=== PATIENT | male | born 1935 | race Caucasian/White ===

== ENCOUNTER 2017-01-15 18:43 | Emergency (ER) | payer MEDICARE ==
[2017-01-15 20:20] LABS: Hematocrit 36 % (42-52); Hemoglobin 11.3 g/dl (14.0-18.0); Mean Corpuscular HGB Conc 31 g/dl (31-36); Mean Corpuscular Hemoglobin 23 pg (27-31); Mean Corpuscular Volume 74 fL (80-94); Mean Platelet Volume 9 um3 (7.4-10.4); Red Blood Count 4.82 10^6/ul (4.0-5.4); Red Cell Distribution Width 19 % (10.5-15); White Blood Count 6.1 10^3/ul (3.5-10.8)
[2017-01-15 20:21] LABS: Add Diff/Slide Review? Slide Review Added; Comments Flag Yes
[2017-01-15 20:32] LABS: Albumin 3.8 g/dL (3.2-5.2); BUN/Creatinine Ratio 14.9 (8-20); C Reactive Protein 6.77 mg/L (< 5.00); Calcium 8.9 mg/dL (8.6-10.3); EGFR African American 91.6 (>60); EGFR Non-African American 71.3 (>60); Globulin 3.5 g/dL (2-4); Potassium 3.9 mmol/L (3.5-5.0); Total Bilirubin 0.8 mg/dL (0.2-1.0); Total Protein 7.3 g/dL (6.4-8.9)
--- NOTE | 2017-01-15 20:56 | RAD ---
Indication: Chest pain. Comparison is made with previous exam dated July 16, 2014. 2 views of the chest demonstrates bibasilar atelectasis. No mediastinal shift is noted. Heart is mildly enlarged. IMPRESSION: Bibasilar atelectasis. No pneumonia is identified.
--- NOTE | 2017-01-15 21:05 | RAD ---
Indication: Right flank pain. CT of the abdomen and pelvis was performed without oral or IV contrast administration. Coronal and sagittal reconstructed images were obtained. Lung bases demonstrate no pleural fluid, nodules or masses. Heart is of normal size without evidence of pericardial effusion. Liver is normal in size. No focal lesions or intrahepatic duct dilatation is noted. Patient status post cholecystectomy. The common duct is not dilated. The pancreas demonstrates no mass or pancreatic duct dilatation. The spleen is normal in size. No adrenal masses are noted. The kidneys demonstrate no hydronephrosis in either kidney. No hydroureter is noted. CT of the pelvis demonstrates no retroperitoneal or pelvic lymphadenopathy. Colon is filled with stool. Urinary bladder is unremarkable. Postoperative changes with surgical clips are noted in the rectosigmoid junction. IMPRESSION: NO EVIDENCE OF OBSTRUCTIVE UROPATHY IS NOTED. NO OTHER MASSES OR FLUID COLLECTIONS ARE IDENTIFIED.
--- NOTE | 2017-01-15 21:07 | RAD ---
Indication: Back pain. CT of the lumbar spine was obtained in the axial plane. Sagittal and coronal reconstructed images were obtained. The vertebral bodies appear normal in height. No compression fracture is noted. At L5-S1 vacuum disc phenomenon with broad-based protrusion flattens the thecal sac. Central protrusion is noted indenting the thecal sac. Moderate facet hypertrophy is noted. At L4-L5 spondylitic ridge flattens the thecal sac. Broad-based protrusion is noted. No central or foraminal stenosis is noted. At L3-L4 broad-based protrusion flattens the thecal sac. Right posterior lateral disc protrusion appears to narrow the right foramen and may impinge upon the right exiting nerve root. At L2-L3 broad-based protrusion flattens the thecal sac. No central foraminal stenosis is noted. L1-L2 vacuum disc phenomenon with broad-based protrusion flattens the thecal sac. Moderate degree of facet arthropathy is noted. IMPRESSION: Vacuum disc phenomenon with moderately severe degenerative disc disease at L1-L2, L3-L4, L4-L5 and L5-S1. Dorsal and ventral osteophyte formation is noted. At L3-L4 broad-based protrusion asymmetric towards the right narrows the right foramen. No fracture is noted.
[2017-01-15 21:57] LABS: Urine Bacteria Absent (Absent); Urine Bilirubin Negative (Negative); Urine Glucose Negative (Negative); Urine Nitrite Negative (Negative)
--- NOTE | 2017-01-15 22:48 | ED ---
Lindsey Spear Erika, scribed for Edgar Zayas MD on 01/15/17 at 2115 . Abdominal Pain/Male - HPI Summary HPI Summary: Patient is a 81-year-old male presenting to the ED with a CC of right lateral abdominal/flank pain starting this morning when he woke up. Patient reports pain has been constant since then, is rated a 2/10, and is aggravated by movement. Pain is not aggravated by breathing or palpation. Associated symptoms include nausea. He denies difficulty urinating. PSHx cholecystectomy, colon CA. - History of Current Complaint Chief Complaint: EDAbdPain Stated Complaint: ABD PAIN Time Seen by Provider: 01/15/17 19:50 Hx Obtained From: Patient, Family/Nurse Quality - Onset/Duration: Lasting Hours, Still Present Timing: Constant Severity Currently: Moderate Pain Intensity: 2 Pain Scale Used: 0-10 Numeric Location: Other - right lateral Aggravating Factor(s): Movement Alleviating Factor(s): Nothing Associated Signs And Symptoms: Positive: Nausea. Negative: Urinary Symptoms - Allergies/Home Medications Allergies/Adverse Reactions: Allergies Allergy/AdvReac Type Severity Reaction Status Date / Time No Known Allergies Allergy Verified 01/15/17 18:54 PMH/Surg Hx/FS Hx/Imm Hx Endocrine/Hematology History: Denies: Hx Diabetes Cardiovascular History: Reports: Hx Angina Denies: Hx Coronary Artery Disease, Hx Hypercholesterolemia, Hx Hypertension , Hx Myocardial Infarction, Hx Pacemaker/ICD, Hx Valvular Heart Disease, Other Cardiovascular Problems/Disorders Respiratory History: Reports: Hx Chronic Obstructive Pulmonary Disease (COPD) Denies: Hx Asthma GI History: Reports: Hx Gastroesophageal Reflux Disease Denies: Other GI Disorders History: Denies: Hx Dialysis, Hx Renal Disease Musculoskeletal History: Reports: Hx Arthritis - LEFT KNEE, RIGHT REPLACED Sensory History: Reports: Hx Contacts or Glasses Denies: Hx Hearing Aid Opthamlomology History: Reports: Hx Contacts or Glasses Neurological History: Denies: Other Neuro Impairments/Disorders Psychiatric History: Denies: Hx Panic Disorder - Cancer History Cancer Type, Location and Year: COLON CA Hx Chemotherapy: No Hx Radiation Therapy: No - Surgical History Surgery Procedure, Year, and Place: colon resection r/t CA,. RIGHT TOTAL KNEE. GALLBLADDER 01/06/14 Hx Anesthesia Reactions: No Infectious Disease History: No Infectious Disease History: Denies: Hx Shingles, Hx Tuberculosis, Traveled Outside the [place] in Last 30 Days - Family History Known Family History: Positive: Cardiac Disease - Social History Alcohol Use: Occasionally Alcohol Amount: 2-3 beers/wk Substance Use Type: Reports: None Hx Tobacco Use: Yes Amount Used/How Often: PIPE Have You Smoked in the Last Year: No Review of Systems Positive: Abdominal Pain - right lateral, Nausea Negative: dysuria All Other Systems Reviewed And Are Negative: Yes Physical Exam Triage Information Reviewed: Yes Vital Signs On Initial Exam: Initial Vitals Temp Pulse Resp BP Pulse Ox 99.7 F 91 16 156/93 94 01/15/17 18:55 01/15/17 18:55 01/15/17 18:55 01/15/17 18:55 01/15/17 18:55 Vital Signs Reviewed: Yes Appearance: Positive: Well-Appearing, No Pain Distress, Obese Skin: Positive: Warm, Skin Color Reflects Adequate Perfusion, Dry Head/Face: Positive: Normal Head/Face Inspection Eyes: Positive: Normal ENT: Positive: Normal ENT inspection Neck: Positive: Supple, Nontender Respiratory/Lung Sounds: Positive: Clear to Auscultation, Breath Sounds Present Cardiovascular: Positive: RRR Abdomen Description: Positive: Nontender, Soft Bowel Sounds: Positive: Present Musculoskeletal: Positive: Other - Obviously tender to the right iliac crest with movement, non-tender to palpation Neurological: Positive: Normal Psychiatric: Positive: Affect/Mood Appropriate Diagnostics - Vital Signs Vital Signs Temp Pulse Resp BP Pulse Ox 01/15/17 18:55 99.7 F 91 16 156/93 94 - Laboratory Lab Results: Lab Results 01/15/17 01/15/17 01/15/17 Range/Units 19:53 19:53 21:44 WBC 6.1 (3.5-10.8) 10^3/ul RBC 4.82 (4.0-5.4) 10^6/ul Hgb 11.3 L (14.0-18.0) g/dl Hct 36 L (42-52) % MCV 74 L (80-94) fL MCH 23 L (27-31) pg MCHC 31 (31-36) g/dl RDW 19 H (10.5-15) % Plt Count 195 (150-450) 10^3/ul MPV 9 (7.4-10.4) um3 Neut % (Auto) 68.9 (38-83) % Lymph % (Auto) 17.7 L (25-47) % [place] % (Auto) 12.1 H (1-9) % Eos % (Auto) 0.8 (0-6) % Baso % (Auto) 0.5 (0-2) % Absolute Neuts (auto) 4.2 (1.5-7.7) 10^3/ul Absolute Lymphs (auto) 1.1 (1.0-4.8) 10^3/ul Absolute Monos (auto) 0.7 (0-0.8) 10^3/ul Absolute Eos (auto) 0 (0-0.6) 10^3/ul Absolute Basos (auto) 0 (0-0.2) 10^3/ul Absolute Nucleated RBC 0 10^3/ul Nucleated RBC % 0 Sodium 137 (133-145) mmol/L Potassium 3.9 (3.5-5.0) mmol/L Chloride 103 (101-111) mmol/L Carbon Dioxide 27 (22-32) mmol/L Anion Gap 7 (2-11) mmol/L BUN 15 (6-24) mg/dL Creatinine 1.01 (0.67-1.17) mg/dL Est GFR ( Amer) 91.6 (>60) Est GFR (Non-Af Amer) 71.3 (>60) BUN/Creatinine Ratio 14.9 (8-20) Glucose 99 (70-100) mg/dL Calcium 8.9 (8.6-10.3) mg/dL Total Bilirubin 0.80 (0.2-1.0) mg/dL AST 19 (13-39) U/L ALT 16 (7-52) U/L Alkaline Phosphatase 68 (34-104) U/L Troponin I 0.00 (<0.04) ng/mL C-Reactive Protein 6.77 H (< 5.00) mg/L Total Protein 7.3 (6.4-8.9) g/dL Albumin 3.8 (3.2-5.2) g/dL Globulin 3.5 (2-4) g/dL Albumin/Globulin Ratio 1.1 (1-3) Urine Color Yellow Urine Appearance Clear Urine pH 6.0 (5-9) Ur Specific [place] 1.017 (1.010-1.030) Urine Protein Negative (Negative) Urine Ketones Negative (Negative) Urine Blood 3+ H (Negative) Urine Nitrate Negative (Negative) Urine Bilirubin Negative (Negative) Urine Urobilinogen Negative (Negative) Ur Leukocyte Esterase Trace H (Negative) Urine WBC (Auto) 1+(6-10/hpf) H (Absent) Urine RBC (Auto) 3+(>10/hpf) H (Absent) Ur Squamous Epith Cells Present H (Absent) Urine Bacteria Absent (Absent) Urine Glucose Negative (Negative) Result Diagrams: 01/15/17 19:53 01/15/17 19:53 Lab Statement: Any lab studies that have been ordered have been reviewed, and results considered in the medical decision making process. - Radiology CXR Radiology Interpretation Completed By: Radiologist - IMPRESSION: Bibasilar atelectasis. No pneumonia is identified. - CT CT A/P W/O CT Interpretation Completed By: Radiologist - IMPRESSION: NO EVIDENCE OF OBSTRUCTIVE UROPATHY IS NOTED. NO OTHER MASSES OR FLUID COLLECTIONS ARE IDENTIFIED. L Spine CT CT Interpretation Completed By: Radiologist - IMPRESSION: Vacuum disc phenomenon with moderately severe degenerative disc disease at L1-L2, L3-L4, L4- L5 and L5-S1. Dorsal and ventral osteophyte formation is noted. At L3-L4 broad- based protrusion asymmetric towards the right narrows the right foramen. No fracture is noted. Re-Evaluation - Re-Evaluation First Eval Re-Evaluation Time: 22:03 Comment: Discussed results with patient Abdominal Pain Fem Course/Dx - Course Course Of Treatment: Mr. Perez seems to have a musculoskeletal pain. It hurts him to move but I can't reproduce it with palpation. His W/U is negative aside from an equivocal urine and as it does not fit the clinical picture, I will wait for C&S. - Diagnoses Provider Diagnoses: Low back pain Discharge - Discharge Plan Condition: Stable Disposition: HOME Prescriptions: traMADol TAB* [Ultram*] 25 mg PO Q6HR PRN #20 tab MDD 4 PRN Reason: Pain Patient Education Materials: Low Back Strain (ED) Referrals: Sharon Black MD [Primary Care Provider] - Additional Instructions: Please follow up with your PCP The documentation as recorded by the Lindsey craig Erika accurately reflects the service I personally performed and the decisions made by me, Edgar Zayas MD.
[2017-01-15 22:59] VITALS: BP 174/84
[2017-01-15] MEDS ORDERED: HYDROcodone/ACETAMIN 5-325 MG* 1 TAB PO ONE (23:00)
--- NOTE | 2017-01-17 09:24 | PN ---
Progress Note - Progress Note Note: Patient urine preliminary culture grew citrobacter koseri 10-25,000. Was not discharged with any medication. Will wait for final urine culture results. No change needed at this time.
== END 2017-01-15 23:00 | disposition home or self-care (01) ==
LOC: ED 18:43
DX: S39.012A Strain of muscle, fascia and tendon of lower back, initial encounter (principal); R10.84 Generalized abdominal pain; X58.XXXA Exposure to other specified factors, initial encounter; Y93.9 Activity, unspecified; Y92.9 Unspecified place or not applicable; R11.0 Nausea
CPT/HCPCS: 36415; 71020; 72131; 74176; 80053; 81003; 81015; 84484; 85025; 86140; 87077; 87086; 87186; 99283

== ENCOUNTER 2019-01-12 02:33 | Emergency (ER) | payer MEDICARE ==
[2019-01-12] MEDS ORDERED: NS 0.9% 1000 ML** 1,000 ML IV ONE (03:04)
[2019-01-12] MEDS ORDERED: Aspirin 81 mg CHEW TAB* 81 MG TAB.CHEW PO ONE (03:05)
[2019-01-12] MEDS ORDERED: Metoprolol Tartrate IV* 1 MG/ML 5 ML VIAL IV ONE (03:05)
--- NOTE | 2019-01-12 03:08 | ED ---
HPI Chest Pain - HPI Summary HPI Summary: Pt is an 83 y/o male brought in by EMS who presents to the ED c/o CP. As per son , he began to have sub-sternal CP around 19:00 last night after eating. As per EMS, the CP has been worsening. Pain is constant and is rated a 4/10 in severity. Pt denies any SOB, abdominal pain, back pain, BUE pain, neck pain, nausea, or dizziness. He is a former smoker. PMHx angina, GERD. - History of Current Complaint Chief Complaint: EDChestPainROMI Time Seen by Provider: 01/12/19 03:02 Hx Obtained From: Patient, EMS Onset/Duration: Started Hours Ago - 19:00 last night, Still Present Timing: Constant Current Severity: Moderate Pain Intensity: 4 Pain Scale Used: 0-10 Numeric Chest Pain Location: Mid Sternal Character: Sharp/Stabbing Aggravating Factor(s): Other: - Food Associated Signs and Symptoms: Positive: Chest Pain. Negative: Shortness of Breath, Nausea, Back Pain - Allergy/Home Medications Allergies/Adverse Reactions: Allergies Allergy/AdvReac Type Severity Reaction Status Date / Time No Known Allergies Allergy Verified 01/15/17 18:54 Home Medications: Home Medications Acetaminophen [Acetaminophen Extra Strength] 500 mg PO Q4H PRN 01/12/19 [ History Confirmed 01/12/19] Aspirin 325 mg PO DAILY 01/12/19 [History Confirmed 01/12/19] Atorvastatin* [Lipitor*] 40 mg PO DAILY 01/12/19 [History Confirmed 01/12/19] Clopidogrel TAB* [Plavix TAB*] 1 tab PO DAILY 01/12/19 [History Confirmed ] Oxybutynin Chloride [Oxybutynin Chloride ER] 2 tab PO DAILY 01/12/19 [History Confirmed 01/12/19] PMH/Surg Hx/FS Hx/Imm Hx Endocrine/Hematology History: Denies: Hx Diabetes Cardiovascular History: Reports: Hx Angina Denies: Hx Coronary Artery Disease, Hx Hypercholesterolemia, Hx Hypertension , Hx Myocardial Infarction, Hx Pacemaker/ICD, Hx Valvular Heart Disease, Other Cardiovascular Problems/Disorders Respiratory History: Reports: Hx Chronic Obstructive Pulmonary Disease (COPD) Denies: Hx Asthma GI History: Reports: Hx Gastroesophageal Reflux Disease Denies: Other GI Disorders History: Reports: Hx Chronic Renal Failure Denies: Hx Dialysis, Hx Renal Disease Musculoskeletal History: Reports: Hx Arthritis - LEFT KNEE, RIGHT REPLACED Sensory History: Reports: Hx Contacts or Glasses Denies: Hx Hearing Aid Opthamlomology History: Reports: Hx Contacts or Glasses Neurological History: Reports: Hx CVA Denies: Other Neuro Impairments/Disorders Psychiatric History: Denies: Hx Panic Disorder - Cancer History Cancer Type, Location and Year: COLON CA Hx Chemotherapy: No Hx Radiation Therapy: No - Surgical History Surgery Procedure, Year, and Place: colon resection r/t CA,. RIGHT TOTAL KNEE. GALLBLADDER 01/06/14 Hx Anesthesia Reactions: No - Immunization History Date of Tetanus Vaccine: unk Date of Influenza Vaccine: none Infectious Disease History: No Infectious Disease History: Denies: Hx Shingles, Hx Tuberculosis, Traveled Outside the [place] in Last 30 Days - Family History Known Family History: Positive: Cardiac Disease - Social History Alcohol Use: Rare Alcohol Amount: 1 per month Hx Substance Use: No Substance Use Type: Reports: None Hx Tobacco Use: Yes Smoking Status (MU): Former Smoker Amount Used/How Often: PIPE Have You Smoked in the Last Year: No Review of Systems Positive: Chest Pain Negative: Shortness Of Breath Negative: Abdominal Pain, Nausea Negative: Myalgia - back, neck, BUE Neurological: Other - NEGATIVE: dizziness All Other Systems Reviewed And Are Negative: Yes Physical Exam - Summary Physical Exam Summary: Appearance: well appearing, no pain distress Skin: warm, dry, reflects adequate perfusion Head/face: normal Eyes: EOMI, GISELLA ENT: mucous membranes moist Neck: supple, non-tender, no JVD Respiratory: CTA, breath sounds present Cardiovascular: tachycardic rate but regular rhythm, pulses symmetrical, systolic murmur, minor BLE edema Abdomen: non-tender, soft Bowel Sounds: present Musculoskeletal: normal, strength/ROM intact Neuro: A&Ox3, essential tremor, hard of hearing Triage Information Reviewed: Yes Vital Signs On Initial Exam: Initial Vitals Temp Pulse Resp BP Pulse Ox 97.4 F 115 14 110/68 91 01/12/19 02:39 01/12/19 02:39 01/12/19 02:39 01/12/19 02:39 01/12/19 02:39 Vital Signs Reviewed: Yes Diagnostics - Vital Signs Vital Signs Temp Pulse Resp BP Pulse Ox 01/12/19 02:39 97.4 F 115 14 110/68 91 - Laboratory Result Diagrams: 01/12/19 03:20 01/12/19 03:21 Lab Statement: Any lab studies that have been ordered have been reviewed, and results considered in the medical decision making process. - Radiology CXR Radiology Interpretation Completed By: ED Physician Summary of Radiographic Findings: Tortuous airway, no acute findings. Unchanged from previous. Pending official radiology report. - EKG 3:16 Cardiac Rate: Tachycardia - 111 bpm EKG Rhythm: Sinus Tachycardia ST Segment: Non-Specific Summary of EKG Findings: Nl axis Re-Evaluation - Re-Evaluation First Eval Re-Evaluation Time: 04:00 Change: Unchanged Comment: Pt feels the same. He states this is similar to his normal GERD. Second Eval Re-Evaluation Time: 04:45 Change: Unchanged Comment: Pt feels the same. Discussed plan for discharge vs. admission. Chest Pain Course/Dx - Course Course Of Treatment: Patient presents with mild substernal chest discomfort that he relates his exacerbation of his chronic GERD. He is very comfortable and slept throughout his course. He had some benefit with treatment but had some residual. He was offered admission and declined and instead would like to go home and follow up closely with his primary care physician. He was treated for his heart rate in the 90s and low 100s and his hypertension. It is suggested that he follow-up first thing in the morning for blood pressure recheck and reevaluation of his symptoms. - Chest Pain Differential Diagnosis/HQI/PQRI: Acute MA, ACS, Angina, CHF, GI Disease, Lower Respiratory Infection, Pulmonary Embolism - Diagnoses Provider Diagnoses: Atypical chest pain, Chronic hypertension, Chronic GERD Discharge - Sign-Out/Discharge Documenting (check all that apply): Patient Departure - Discharge Patient Received Moderate/Deep Sedation with Procedure: No - Discharge Plan Condition: Improved Disposition: HOME Prescriptions: Famotidine TAB* [Pepcid 20 MG TAB*] 40 mg PO BID #30 tab Sucralfate TAB* [Carafate*] 1 gm PO QID #40 tab Patient Education Materials: Chest Pain (ED), Gastroesophageal Reflux Disease ( ED) Referrals: Hadley Jeffers DO [Primary Care Provider] - Additional Instructions: Call your doctor first thing this morning to schedule prompt follow-up. Return with difficulty breathing, alteration in your pain, worse, new symptoms or other concerns as discussed. Have your doctor recheck your blood pressure in the next few days. - Billing Disposition and Condition Condition: IMPROVED Disposition: Home - Attestation Statements Document Initiated by Therese: Yes Documenting Scribe: Erika Dennis Provider For Whom Therese is Documenting (Include Credential): Evaristo Martinez MD Scribe Attestation: Erika Spear, scribed for Evaristo Martinez MD on 01/12/19 at 0628. Scribe Documentation Reviewed: Yes Provider Attestation: The documentation as recorded by the Erika craig accurately reflects the service I personally performed and the decisions made by , Evaristo Martinez MD Status of Scribe Document: Viewed
[2019-01-12] MEDS ORDERED: Famotidine TAB* 20 MG PO ONE (03:12)
[2019-01-12] MEDS ORDERED: Al Hydrox/Mg Hydrox/Simet LIQ* 30 ML UDC PO ONE (03:12)
[2019-01-12] MEDS ORDERED: Sucralfate TAB* 1 GM PO ONE (03:12)
[2019-01-12 03:28] LABS: ABS Monocytes 0.9 10^3/ul (0-0.8); ABS Neutrophils 8.2 10^3/ul (1.5-7.7); Eosinophil % 0.3 %; Hematocrit 49 % (42-52); Hemoglobin 16.2 g/dL (14.0-18.0); Lymphocyte % 9.5 %; Mean Corpuscular HGB Conc 33 g/dL (31-36); Mean Corpuscular Hemoglobin 30 pg (27-31); Mean Corpuscular Volume 90 fL (80-94); Mean Platelet Volume 9.9 fL (7.4-10.4); Nucleated Red Blood Cells % 0.1; Platelet Count 185 10^3/uL (150-450); Red Blood Count 5.44 10^6 /uL (4.18-5.48); Red Cell Distribution Width 15 % (10.5-15); White Blood Count 10.1 10^3/uL (3.5-10.8)
[2019-01-12 03:44] LABS: Albumin 4.6 g/dL (3.2-5.2); Albumin/Globulin Ratio 1.2 (1-3); BUN/Creatinine Ratio 20.8 (8-20); Calcium 10.5 mg/dL (8.6-10.3); EGFR African American 81.1 (>60); EGFR Non-African American 67.1 (>60); Globulin 3.7 g/dL (2-4); Potassium 3.8 mmol/L (3.5-5.0); Total Bilirubin 1.2 mg/dL (0.2-1.0); Total Protein 8.3 g/dL (6.4-8.9)
[2019-01-12 03:47] LABS: INR 1.45 (0.82-1.09)
[2019-01-12 03:58] LABS: TSH (Thyroid Stimulating Horm) 0.88 mcIU/mL (0.34-5.60)
[2019-01-12] MEDS ORDERED: Lidocaine 2% VISCOUS* 15 ML UDC PO ONE (04:03)
[2019-01-12] MEDS ORDERED: Pantoprazole TAB * 40 MG TAB PO ONE (04:03)
[2019-01-12] MEDS ORDERED: Metoprolol Succinate XL TAB* 50 MG PO ONE (04:58)
[2019-01-12 06:32] VITALS: BP 161/120
== END 2019-01-12 06:30 | disposition home or self-care (01) ==
LOC: ED 02:33
DX: R07.89 Other chest pain (principal); I12.9 Hypertensive chronic kidney disease with stage 1 through stage 4 chronic kidney disease, or unspecified chronic kidney disease; K21.9 Gastro-esophageal reflux disease without esophagitis; N18.9 Chronic kidney disease, unspecified; J44.9 Chronic obstructive pulmonary disease, unspecified; Z79.82 Long term (current) use of aspirin; Z79.01 Long term (current) use of anticoagulants; Z79.899 Other long term (current) drug therapy; Z87.891 Personal history of nicotine dependence; Z82.49 Family history of ischemic heart disease and other diseases of the circulatory system
CPT/HCPCS: 36415; 71045; 80053; 82550; 83605; 83880; 84443; 84484; 85025; 85610; 93005; 96361; 96374; 99285; A9270-GY; J3490